=== PATIENT | female | born 1975 | race American Indian/Alaskan Native ===

== ENCOUNTER 2018-01-21 04:16 | Emergency (ER) | payer SELFPAY ==
[2018-01-21] MEDS ORDERED: ATIVAN IV PRN (04:40)
[2018-01-21] MEDS ORDERED: NACL 0.9% 1000 ML 1,000 ML IV ONE (04:40)
--- NOTE | 2018-01-21 04:47 | Emergency Department Report ---
ED Seizure HPI - General Chief Complaint: Seizure Stated Complaint: SEIZURE Time Seen by Provider: 01/21/18 04:40 Source: EMS Mode of arrival: Stretcher Limitations: Altered Mental Status - History of Present Illness Initial Comments: 42-year-old woman, brought in by EMS with report of having been found having active seizure by daughter. Patient was apparently from out of town, was in a hotel, and daughter found patient with seizure-like activity. Report was that patient had been having similar minor episodes the previous day, and daughter had recommended evaluation, the patient had refused. There is no prior history of seizure disorder, and there is no report of any prior trauma, illness, or other unusual activity. EMS did not provide any treatments for patient, brought her here for further evaluation. Patient was found in an unusual position on stretcher, with all extremities extended, although she was not exhibiting any clonic tonic activity, eyes were held close, there was no stiffness, no difficulty with breathing, and patient extremities were easy to move, with minimal resistance initially, followed by easy flexibility, and no clonic or tonic involuntary activity. Patient was not incontinent. Pupillary reflexes were intact, corneal reflexes were intact, and patient exhibited involuntary leg contraction with stimulation of eyelashes. Patient was breathing normally, and vital signs were stable. Onset/Timin -: Sudden, hour(s) Description of Episode: loss of consciousness Witnessed:: Yes Trauma: No Seizure History: none Place: home Possible Precipitating Event: none Associated Symptoms: denies other symptoms Treatments Prior to Arrival: none - Related Data Previous Rx's Medication Instructions Recorded Last Taken Type metroNIDAZOLE [Metrogel 1%] 1 applicatio TP QDAY #60 gel..gram. 10/09/15 Unknown Rx levETIRAcetam [Keppra] 500 mg PO BID #60 tablet 01/21/18 Unknown Rx Allergies Allergy/AdvReac Type Severity Reaction Status Date / Time shellfish derived Allergy Hives Verified 10/09/15 07:47 ED Review of Systems ROS: Stated complaint: SEIZURE Other details as noted in HPI Comment: All other systems reviewed and negative Constitutional: no symptoms reported ENT: denies: throat pain Respiratory: denies: see HPI, cough, shortness of breath Cardiovascular: denies: chest pain Endocrine: no symptoms reported Gastrointestinal: denies: abdominal pain, nausea, diarrhea Genitourinary: denies: urgency, dysuria, discharge Musculoskeletal: denies: back pain, joint swelling, arthralgia Skin: denies: rash, lesions Neurological: denies: headache, weakness, paresthesias Psychiatric: denies: anxiety, depression Hematological/Lymphatic: denies: easy bleeding, easy bruising ED Past Medical Hx - Past Medical History Previous Medical History?: No Hx Seizures: No Additional medical history: Vaginitis - Surgical History Past Surgical History?: Yes Additional Surgical History: tubal ligation 1998 - Social History Smoking Status: Unknown if ever smoked - Medications Home Medications: Home Medications Medication Instructions Recorded Confirmed Last Taken Type metroNIDAZOLE [Metrogel 1%] 1 applicatio TP QDAY #60 gel..gram. 10/09/15 Unknown Rx levETIRAcetam [Keppra] 500 mg PO BID #60 tablet 01/21/18 Unknown Rx ED Physical Exam - General Limitations: Altered Mental Status (patient is a straight on stretcher, arms extended, but no active seizure, minimally responsive, does not make eye contact ) General appearance: in no apparent distress, other (unusual behavior, does not make direct eye contact, no active seizures observed) - Head Head exam: Present: atraumatic, normocephalic - Eye Eye exam: Present: PERRL - ENT ENT exam: Present: normal exam, mucous membranes moist - Neck Neck exam: Present: normal inspection, full ROM. Absent: tenderness - Respiratory Respiratory exam: Present: normal lung sounds bilaterally. Absent: respiratory distress, wheezes, rales, rhonchi - Cardiovascular Cardiovascular Exam: Present: regular rate, normal rhythm, normal heart sounds - GI/Abdominal GI/Abdominal exam: Present: soft, normal bowel sounds. Absent: tenderness, guarding, rebound - Rectal Rectal exam: Present: deferred - Extremities Exam Extremities exam: Present: normal inspection, full ROM. Absent: tenderness, pedal edema - Back Exam Back exam: Present: normal inspection - Neurological Exam Neurological exam: Present: altered (makes minimal contact, speaks in a soft voice, clearly aware, makes incomplete efforts to cooperate with exam), oriented X3 (able name date, place, time, reports no recall of immediate situation surrounding seizure). Absent: motor sensory deficit - Psychiatric Psychiatric exam: Present: other (makes poor eye contact, keeps eyes closed, somewhat withdrawn, speaks in soft tone of voice) - Skin Skin exam: Present: warm, dry ED Course Vital Signs 01/21/18 01/21/18 01/21/18 04:42 04:45 05:00 Temperature Pulse Rate 103 H 101 H 90 Respiratory 20 19 18 Rate Blood Pressure 133/82 129/83 O2 Sat by Pulse Oximetry 01/21/18 05:38 Temperature 37.2 C Pulse Rate Respiratory Rate Blood Pressure O2 Sat by Pulse 100 Oximetry - Reevaluation(s) Reevaluation #1: 01/21/18 07:14 Patient remained stable in the emergency department, with no active clonic tonic seizure activity, is awake, but avoids contact, appears somewhat withdrawn , but in no acute distress. Vital signs are stable, lab results discussed, lack of prior neurologic evaluation confirmed, or current primary care doctor, with need for further follow-up. ED Medical Decision Making - Lab Data Result diagrams: 01/21/18 04:51 01/21/18 04:51 - Radiology Data Radiology results: report reviewed (normal CT scan of brain with no acute intracranial pathology, no evidence of head trauma) - Medical Decision Making This middle-aged woman as essentially normal physical examination, with questionable history of seizure, which appears to be some form of acting out or stress related anxiety reaction, but I doubt if patient is having grand mal seizure activity, or even atypical seizure activity. Nonetheless, given her lack of prior history, I believe it prudent to start her on antiepileptic medication, she was given an initial dose of Keppra, and we'll discharge her on Keppra, with referral to a neurologist, for arrangements for outpatient evaluation to include EEG. - Differential Diagnosis seizure, atypical seizure, pseudoseizure, anxiety reaction Critical Care Time: No Critical care attestation.: If time is entered above; I have spent that time in minutes in the direct care of this critically ill patient, excluding procedure time. ED Disposition Clinical Impression: Witnessed seizure-like activity Disposition: -01 TO HOME OR SELFCARE Is pt being admited?: No Does the pt Need Aspirin: No Condition: Stable Additional Instructions: We have evaluated here today for seizure-like activity, but could not find definite evidence of an acute grand mal seizure. Laboratory evaluation is stable, as is CT scan. You will need further evaluation by a neurologist to determine if you've had true seizure activity, but this can be safely performed on an outpatient basis. We do not have neurologic services available at this hospital, and you will need to obtain your own neurologic specialist follow-up. He may wish to contact a local neurologist, in the area, research on the Internet or Yellow Pages. He may also wish to follow with neurology services at [facility], and he may contact them for a referral appointment. You are stable for discharge home, but we are starting you on Keppra, to take twice daily while awaiting neurologic follow-up. We recommend that she not drive vehicles while you are being evaluated, presented to you have been cleared by neurologist. You may be up and around, but avoid pools of water, do not bathe, but instead you should shower. Have repeat emergency department evaluation if he have any persistent or recurrent worsening symptoms. Prescriptions: levETIRAcetam [Keppra] 500 mg PO BID #60 tablet Referrals: PRIMARY CARE, [Primary Care Provider] - 3-5 Days Time of Disposition: 07:19
[2018-01-21 05:07] LABS: Basophils % (Auto) 0.5 % (0.0-1.8); Eosinophils % (Auto) 0.2 % (0.0-4.3); Hematocrit 36.3 % (30.3-42.9); Hemoglobin 11.7 gm/dl (10.1-14.3); Lymphocytes # (Auto) 2.6 K/mm3 (1.2-5.4); Lymphocytes % (Auto) 27.7 % (13.4-35.0); Mean Corpuscular HGB Conc 32 % (30-34); Mean Corpuscular Hemoglobin 27 pg (28-32); Mean Corpuscular Volume 82 fl (79-97); Monocytes # (Auto) 1.2 K/mm3 (0.0-0.8); Monocytes % (Auto) 13.5 % (0.0-7.3); Platelet Count 338 K/mm3 (140-440); Red Blood Count 4.43 M/mm3 (3.65-5.03); Red Cell Distribution Width 13.9 % (13.2-15.2)
[2018-01-21 05:35] LABS: Alanine Aminotransferase 7 units/L (7-56); Albumin 4.1 g/dL (3.9-5); BUN/Creatinine Ratio 10; Blood Urea Nitrogen 8 mg/dL (7-17); Calcium 9.4 mg/dL (8.4-10.2); Hemolysis Index 9
[2018-01-21 05:38] VITALS: BP 129/83
[2018-01-21 06:26] LABS: Bilirubin,Urine SM (Negative); Blood,Urine NEG (Negative); Color,Urine Yellow (Yellow); Mucus,Urine 3+ /HPF
[2018-01-21 06:28] LABS: Amphetamine Screen,Urine PRESUMPTIVE NEGATIVE; Benzodiazepines Screen,Urine PRESUMPTIVE NEGATIVE; Cannabinoid Screen,Urine PRESUMPTIVE NEGATIVE; Cocaine Screen,Urine PRESUMPTIVE NEGATIVE; Methadone Screen,Urine PRESUMPTIVE NEGATIVE; Opiate Screen,Urine PRESUMPTIVE NEGATIVE
[2018-01-21 06:31] LABS: Ictotest,Urine Negative (Negative)
--- NOTE | 2018-01-21 06:38 | Cat Scan Report ---
FINAL REPORT PROCEDURE: CT HEAD/BRAIN WO CON TECHNIQUE: Computerized tomography of the head was performed without contrast material. HISTORY: Seizure COMPARISON: No prior studies are available for comparison. FINDINGS: Skull and scalp: Normal. Paranasal sinuses: Normal. Ventricles and subarachnoid spaces: Normal. Cerebrum: No evidence of hemorrhage, acute infarction or mass . Cerebellum and brainstem: No evidence of hemorrhage, acute infarction or mass. Vasculature: Normal. Comments: None. IMPRESSION: There is no evidence of an acute intracranial process
== END 2018-01-21 07:40 | disposition home or self-care (01) ==
LOC: ED 04:16
DX: R56.9 Unspecified convulsions (principal); Z98.51 Tubal ligation status; Z91.013 Allergy to seafood
CPT/HCPCS: 36415; 70450; 80053; 80156; 80164; 80185; 80307; 81001; 85025; 96360; 99285; G0480; J7030; 80320

== ENCOUNTER 2018-02-28 13:22 | Emergency (ER) | payer SELFPAY ==
--- NOTE | 2018-02-28 14:26 | Emergency Department Report ---
ED General Adult HPI - General Chief complaint: Altered Mental Status Stated complaint: MH Time Seen by Provider: 02/28/18 14:09 Source: EMS Mode of arrival: Stretcher Limitations: Altered Mental Status - History of Present Illness Initial comments: Patient is 43 years old female with no significant past medical history. Patient brought to the ER by EMS after daughter called and stated that her mother is sitting in a bizarre position. Patient is unable to give any history and she is not making any eye contact. Patient was seen here a few weeks back and diagnosis possible seizure. Patient was put on Keppra. I went back into the patient's medical history she was seen here a few times so therefore vaginal discharge and last time she was seen for possible seizure and she was discharged. Unable to obtain more history from this patient at this moment. - Related Data Previous Rx's Medication Instructions Recorded Last Taken Type metroNIDAZOLE [Metrogel 1%] 1 applicatio TP QDAY #60 gel..gram. 10/09/15 Unknown Rx levETIRAcetam [Keppra] 500 mg PO BID #60 tablet 01/21/18 Unknown Rx Allergies Allergy/AdvReac Type Severity Reaction Status Date / Time shellfish derived Allergy Hives Verified 02/28/18 13:48 ED Review of Systems ROS: Stated complaint: MH Other details as noted in HPI Comment: Unobtainable due to pts medical conditions Constitutional: denies: chills, fever ED Past Medical Hx - Past Medical History Hx Seizures: No Additional medical history: Vaginitis - Surgical History Additional Surgical History: tubal ligation 1998 - Social History Smoking Status: Never Smoker Substance Use Type: None - Medications Home Medications: Home Medications Medication Instructions Recorded Confirmed Last Taken Type metroNIDAZOLE [Metrogel 1%] 1 applicatio TP QDAY #60 gel..gram. 10/09/15 Unknown Rx levETIRAcetam [Keppra] 500 mg PO BID #60 tablet 01/21/18 Unknown Rx ED Physical Exam - General Limitations: Altered Mental Status General appearance: alert, other (Catatonic state) - Head Head exam: Present: atraumatic, normocephalic - Eye Eye exam: Present: normal appearance, PERRL - ENT ENT exam: Present: normal exam, normal orophraynx, mucous membranes moist - Neck Neck exam: Present: normal inspection, full ROM. Absent: tenderness, meningismus, lymphadenopathy, thyromegaly - Respiratory Respiratory exam: Present: normal lung sounds bilaterally. Absent: respiratory distress, wheezes, rales, rhonchi, stridor, chest wall tenderness, accessory muscle use, decreased breath sounds, prolonged expiratory - Cardiovascular Cardiovascular Exam: Present: regular rate, normal rhythm, normal heart sounds - GI/Abdominal GI/Abdominal exam: Present: soft, normal bowel sounds. Absent: distended, tenderness, guarding, rebound, rigid, organomegaly, mass, bruit, pulsatile mass , hernia - Extremities Exam Extremities exam: Present: normal inspection, full ROM, normal capillary refill. Absent: tenderness, pedal edema, joint swelling, calf tenderness - Back Exam Back exam: Present: normal inspection, full ROM - Neurological Exam Neurological exam: Present: alert - Skin Skin exam: Present: warm, intact, normal color ED Course Vital Signs 02/28/18 02/28/18 02/28/18 13:49 14:13 18:54 Temperature 98.4 F Pulse Rate 90 84 Respiratory 18 16 18 Rate Blood Pressure 132/84 Blood Pressure 126/74 [Left] O2 Sat by Pulse 100 98 Oximetry - Reevaluation(s) Reevaluation #1: 02/28/18 15:19 Patient daughters came to the ER. Therefore I will to give me more history. They stated that the mother was fine until like one month ago when there was still a financial problem and all the family living in a motel now. They believe that she is going slowlydown. Patient stated that the last weeks she started talking about herself in a one time they saw taking it and that Tylenol overdose and one time also she stated that she going to drink bleach. They also stated that she was admitted to [facility] for 3 days and then she followed as an outpatient. They said she did very well after that but her symptoms relapsed again. ED Medical Decision Making - Lab Data Result diagrams: 02/28/18 14:20 02/28/18 14:20 Critical care attestation.: If time is entered above; I have spent that time in minutes in the direct care of this critically ill patient, excluding procedure time. ED Disposition Clinical Impression: Acute psychosis, Suicidal ideation Disposition: [id number]/TX-65 PSY HOSP/PSY UNIT Is pt being admited?: No Condition: Stable Referrals: PRIMARY CARE, [Primary Care Provider] - 3-5 Days
[2018-02-28 14:50] LABS: Basophils % (Auto) 0.4 % (0.0-1.8); Eosinophils % (Auto) 0.3 % (0.0-4.3); Hematocrit 36.2 % (30.3-42.9); Hemoglobin 11.6 gm/dl (10.1-14.3); Lymphocytes # (Auto) 2.9 K/mm3 (1.2-5.4); Mean Corpuscular HGB Conc 32 % (30-34); Mean Corpuscular Hemoglobin 26 pg (28-32); Mean Corpuscular Volume 82 fl (79-97); Monocytes # (Auto) 1.2 K/mm3 (0.0-0.8); Monocytes % (Auto) 13.9 % (0.0-7.3); Platelet Count 312 K/mm3 (140-440); Red Blood Count 4.39 M/mm3 (3.65-5.03); Red Cell Distribution Width 14.5 % (13.2-15.2)
[2018-02-28 14:51] LABS: Bilirubin,Urine NEG (Negative); Blood,Urine NEG (Negative); Color,Urine Yellow (Yellow); Mucus,Urine FEW /HPF; RBC,Urine < 1.0 /HPF (0.0-6.0); WBC,Urine < 1.0 /HPF (0.0-6.0)
[2018-02-28 14:59] LABS: BUN/Creatinine Ratio 14; Blood Urea Nitrogen 10 mg/dL (7-17); Calcium 9.1 mg/dL (8.4-10.2); Hemolysis Index 2
[2018-02-28 15:00] LABS: Amphetamine Screen,Urine PRESUMPTIVE NEGATIVE; Benzodiazepines Screen,Urine PRESUMPTIVE NEGATIVE; Cannabinoid Screen,Urine PRESUMPTIVE NEGATIVE; Cocaine Screen,Urine PRESUMPTIVE NEGATIVE; Methadone Screen,Urine PRESUMPTIVE NEGATIVE; Opiate Screen,Urine PRESUMPTIVE NEGATIVE
[2018-03-01] MEDS ORDERED: KEPPRA PO ONE (02:14)
[2018-03-01] MEDS: KEPPRA PO SCH ×3 (02:22→22:16)
[2018-03-01] MEDS ORDERED: KEPPRA PO SCH (03:00)
--- NOTE | 2018-03-01 11:46 | Consultation ---
History of Present Illness - Reason for Consult Consult date: 03/01/18 Reason for consult: Mental Health Evaluation Requesting physician: MYLENE OVALLE - Chief Complaint Chief complaint: "The patient mumbles I'm scared" - History of Present Psychiatric Illness 43 years old female with no significant past medical history. The patient is brought to the ER by EMS for bizarre behavior per the record. Today the patient mumbles during the assessment. She did state being "scared" and started crying. She would not answer any questions when asked. Per the record, she was inpatient at [facility] in the past. This patient is not a good historian at this time. Medications and Allergies Allergies Allergy/AdvReac Type Severity Reaction Status Date / Time shellfish derived Allergy Hives Verified 02/28/18 13:48 Home Medications Medication Instructions Recorded Confirmed Last Taken Type metroNIDAZOLE [Metrogel 1%] 1 applicatio TP QDAY #60 gel..gram. 10/09/15 Unknown Rx levETIRAcetam [Keppra] 500 mg PO BID #60 tablet 01/21/18 02/28/18 Unknown Rx Active Meds: Active Medications Levetiracetam (Keppra) 500 mg PO BID CHUCK Stop: 03/06/18 02:21 Last Admin: 03/01/18 11:03 Dose: 500 mg Past psychiatric history - Past Medical History Past Medical History: other (seizures per the record) Past Surgical History: Other (Unable to obtain) - past Psychiatric treatment and history psychiatric treatment history: Unable to obtain a psy hx and afam psy hx. - Social History Social history: other (Reside with family per the record) Mental Status Exam - Vital signs Last Vital Signs Temp 98.4 F 02/28/18 13:49 Pulse 84 02/28/18 18:54 Resp 18 02/28/18 18:54 BP 126/74 02/28/18 18:54 Pulse Ox 98 02/28/18 18:54 - Exam Narrative exam: Unable to complete the MSE because of the patient's condition. Results Result Diagrams: 02/28/18 14:20 02/28/18 14:20 Abnormal lab results 02/28/18 02/28/18 02/28/18 Range/Units 14:12 14:20 14:20 MCH (28-32) pg [place] % (Auto) (0.0-7.3) % [place] # (0.0-0.8) K/mm3 Glucose 102 H (65-100) mg/dL Ur Specific [place] 1.034 H (1.003-1.030) Salicylates < 0.3 L (2.8-20.0) mg/dL 02/28/ Range/Units 14:20 MCH 26 L (28-32) pg [place] % (Auto) 13.9 H (0.0-7.3) % [place] # 1.2 H (0.0-0.8) K/mm3 Glucose (65-100) mg/dL Ur Specific [place] (1.003-1.030) Salicylates (2.8-20.0) mg/dL All other labs normal. Assessment and Plan Assessment and plan: Impression: Today the patient mumbles during the assessment. UDS is negative. Recommendation/Plan: Continue 1013, reassess patient in 24 hours, and gather collateral information to help determine proper dispo and treatment.
[2018-03-02] MEDS: KEPPRA PO SCH ×2 (11:08→21:54)
--- NOTE | 2018-03-02 11:12 | Progress Note ---
Subjective - Reason for Consult Consult date: 03/02/18 Reason for consult: Psychiatry Follow-up - Chief Complaint Chief complaint: "The patient mumbles" 43 years old female with no significant past medical history. The patient is brought to the ER by EMS for bizarre behavior per the record. Today the patient continues to mumble during the assessment. She presents with psychomotor retardation. The patient will not open her eyes when asked. Per the record, she ate 50% of dinner yesterday, but this morning she would not eat. The patient is a poor historian at this time. No gestures of SI/HI's. Mental Status Exam - Vital signs Last Vital Signs Temp 97.9 F 03/01/18 20:27 Pulse 116 H 03/01/18 20:27 Resp 16 03/01/18 20:27 BP 127/93 03/01/18 20:27 Pulse Ox 98 03/01/18 20:27 - Exam Narrative exam: Unable to complete the MSE because of the patient's condition. Assessment and Plan Impression: Catatonia. Today the patient continues to mumbles during the assessment. UDS is negative. DDx: Psychotic/Mood DO Recommendation/Plan: Continue 1013 with placement to inpatient psy services. Gather collateral information to help with current treatment. Start Ativan 1 mg IM TID for catatonia. Monitor patient's oral intake.
[2018-03-02] MEDS: ATIVAN IM SCH ×2 (14:05→21:53)
[2018-03-03] MEDS: KEPPRA PO SCH ×2 (10:52→21:41)
[2018-03-03] MEDS: ATIVAN IM SCH ×3 (10:52→21:40)
--- NOTE | 2018-03-03 17:09 | Progress Note ---
Subjective - Reason for Consult Consult date: 03/03/18 Reason for consult: Pscyhiatric Follow-up Evaluation - Chief Complaint Chief complaint: "Tired" Patient is a 43 years old female with no significant past medical history. The patient is brought to the ER by EMS for bizarre behavior per the record. Today the patient continues to mumble during the assessment. She presents with psychomotor retardation. The patient is seen eating lunch. She states " I'm here for my mental state. I don't know what to do. I'm crazy." During the assessment patient is tearful. She verbalizes " I want my daughter. I don't know where my kids are." She endorses SI's without a plan. She states " I want to ." She denies psychosis and HI's. The patient is a poor historian at this time. Mental Status Exam - Vital signs Last Vital Signs Temp 98.6 F 03/02/18 21:10 Pulse 113 H 03/02/18 21:10 Resp 18 03/03/18 12:01 BP 130/88 03/02/18 21:10 Pulse Ox 98 03/03/18 12:01 - Exam Narrative exam: Mental Status Exam General Appearance: Causally Dressed-hospital gown Eye Contact: Intermittent Orientation: Alert and oriented x 2 ( person and place) Attitude/Behavior: Cooperative Sensorium: Distracted Psychomotor & Musculoskeletal Activity: Laying in bed Mood: "Disturbed." Depressed and anxious. Tearful. Affect: Constricted Speech/Language: Slow rate and soft tone. Mumbles at time. Thought Processes: Tangential, circumstantial Thought Content: Impoverished. Patient denies Perception: + Auditory hallucinations- " I'm hearing voices telling me to kill myself. " + Visual hallucinations "ghosts." Concentration/Attention: Impaired Suicidal Ideations/Plan: + SI's without a plan. She verbalizes " I want to . " Homicidal Ideations/Plan: Patient denies. Insight: Variable Judgment: Variable Assessment and Plan Impression: Catatonia. Today the patient is cooperative but tearful during the assessment. She continues to mumbles, which makes it difficult to understand patient's speech. She endorses depressed mood and SI's without a plan. Although thought content is impoverished, she denies psychosis. UDS is negative. DDx: Psychotic/Mood DO Recommendation/Plan: 1. Continue 1013 with placement to inpatient psychiatric services. Gather collateral information to help with current treatment. 2. Continue Ativan 1 mg IM TID for catatonia. Will monitor patient's oral intake. 3. Will consider starting an antidepressant/mood stabilizer once catatonia has improved. 4. Will continue to monitor mood, psychosis, catatonia, sleep, appetite, compliance, and side effects.
[2018-03-04] MEDS: ATIVAN IM SCH ×3 (08:58→21:58)
[2018-03-04] MEDS: KEPPRA PO SCH ×2 (11:00→22:20)
[2018-03-05] MEDS: ATIVAN IM SCH (09:10)
[2018-03-05] MEDS: KEPPRA PO SCH ×2 (10:34→22:00)
--- NOTE | 2018-03-05 10:37 | Progress Note ---
Subjective - Reason for Consult Consult date: 03/05/18 Reason for consult: Psychiatry Follow-up - Chief Complaint Chief complaint: "I am scared" Patient is a 43 years old female with no significant past medical history. The patient is brought to the ER by EMS for bizarre behavior per the record. Today the patient is cooperative, but tearful during the assessment. She stated that she feel fearful of something, but cannot explain what it is. She stated being a patient at a mental health facility recently, but didn't fill her prescription when discharged. The patient would pause several time during the interview to answer questions, possibly responding to some type of stimuli. She would not confirm or deny SI's. 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 Today the patient is cooperative, but tearful during the assessment. UDS is negative. DDx: Psychotic/Mood DO Recommendation/Plan: The patient's 1013 expires in 24 hours. The patient will be reassess tomorrow to determine of the 1013 will be extended. The patient is still pending inpatient psy services placement. Modify Ativan 1 mg to PO BID for catatonia and start Abilify 5 mg PO daily for mood/psyhosis. Discussed possible metabolic side effects of Abilify with patient reference Abilify. Monitor patient's oral intake.
[2018-03-05] MEDS ORDERED: GEODON IM ONE ×2 (12:08)
[2018-03-05] MEDS ORDERED: GEODON IM PRN (12:08)
[2018-03-05] MEDS ORDERED: WATER FOR INJ (PF) ONE (12:09)
[2018-03-05] MEDS: ABILIFY PO SCH (13:07)
[2018-03-05] MEDS: ATIVAN PO SCH ×2 (13:07→22:00)
[2018-03-06] MEDS: ATIVAN PO SCH ×2 (09:07→23:57)
[2018-03-06] MEDS: ABILIFY PO SCH (09:07)
--- NOTE | 2018-03-06 12:23 | Progress Note ---
Subjective - Reason for Consult Consult date: 03/06/18 Reason for consult: Psychiatry Follow-up - Chief Complaint Chief complaint: "I am scared" Patient is a 43 years old female with no significant past medical history. The patient is brought to the ER by EMS for bizarre behavior per the record. Today the patient is cooperative, but still tearful during the assessment. She is asked for her daughter throughout the interview. She stated that she reside in a hotel room 271. She would not confirm or deny SI's and AH' s when asked. No indications of side effects of her medications. Mental Status Exam - Vital signs Last Vital Signs Temp 97.9 F 03/06/18 09:52 Pulse 60 03/06/18 09:52 Resp 20 03/06/18 09:52 BP 115/66 03/06/18 09:52 Pulse Ox 99 03/06/18 09:52 - Exam Narrative exam: MSE: Appearance: calm Behavior: regular eye contact Speech: regular rate, low tone Mood: "I don't know" tearful Affect: congruent to mood Thought Process: disorganized Thought Content: denies HI's and VH's, paranoia, she will not confirm or deny SI's and AH's Motor Activity: lying down, psychomotor retardation Cognition: A/O x 3 Insight: variable Judgment: variable Assessment and Plan Impression: Unspecified Mood DO with psy features. Catatonia. Today the patient is cooperative, but tearful during the assessment. UDS is negative. The patient;s catatonia is resolving. DDx: Psychotic/Mood DO Recommendation/Plan: The patient's 1013 expires in 24 hours. The patient will be reassess tomorrow to determine if the 1013 will be extended. The patient is still pending inpatient psy services placement. Continue Ativan 1 mg PO BID for catatonia and Abilify 5 mg PO daily for mood/psyhosis. Discussed possible metabolic side effects of Abilify with patient reference Abilify. Monitor patient's oral intake. A call was placed to a hotel at [phone] room [id number], no answer. Will follow up in 24 hours.
[2018-03-07] MEDS: ATIVAN PO SCH (10:31)
[2018-03-07] MEDS: ABILIFY PO SCH (10:31)
--- NOTE | 2018-03-07 19:15 | Progress Note ---
Subjective - Reason for Consult Consult date: 03/07/18 Reason for consult: Psychiatric Follow-up Evaluation - Chief Complaint Chief complaint: "I'm frustrated." Patient is a 43 years old female with no significant past medical history. The patient is brought to the emergency room by EMS for bizarre behavior per the record. Today the patient is cooperative but guarded/ evasive. She endorses depressed mood, anxiety, and paranoid thoughts. She states " I feel alone. I can't talk to my daughter. I miss them." She endorses suicidal ideations without a plan. She states " I think about it but I don't want to do it." She denies A/VH. She reports medication compliance. No indications of side effects. Mental Status Exam - Vital signs Last Vital Signs Temp 99 F 03/07/18 09:00 Pulse 99 H 03/07/18 09:00 Resp 18 03/07/18 09:00 BP 126/87 03/07/18 09:00 Pulse Ox 99 03/07/18 09:00 - Exam Narrative exam: Mental Status Exam General Appearance: Causally Dressed-hospital gown Eye Contact: Intermittent Orientation: Alert and oriented x 2 ( person and place) Attitude/Behavior: Cooperative Sensorium: Distracted Psychomotor & Musculoskeletal Activity: Laying in bed Mood: "Frustrated." Depressed and anxious. Affect: Constricted Speech/Language: Slow. Soft. Mumbles at time. Thought Processes: Tangential, circumstantial Thought Content: Impoverished. Endorses paranoid thoughts. Perception: Patient denies. Concentration/Attention: Impaired Suicidal Ideations/Plan: + SI's without a plan. She verbalizes " I think about it but I don't want to do it." Homicidal Ideations/Plan: Patient denies. 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 Today the patient is cooperative and compliant. She presents depressed, anxious, and paranoid. She denies A/VH. UDS is negative. The patient catatonia is resolving. DDx: Psychotic/Mood DO Recommendation/Plan: 1. 1013 will be extended. The patient is still pending inpatient psychiatric services placement. 2. Continue Ativan 1 mg PO BID for catatonia. 3. Increase Abilify 10 mg PO daily for mood/psyhosis. Discussed possible metabolic side effects of Abilify with patient reference Abilify. Monitor patient's oral intake. 4. Will monitor mood, psychosis, catatonia, sleep, appetite, compliance, and side effects.
[2018-03-08] MEDS: ATIVAN PO SCH ×3 (00:34→23:57)
--- NOTE | 2018-03-08 16:43 | Progress Note ---
Subjective - Reason for Consult Consult date: 03/08/18 Reason for consult: Psychiatry Follow-up - Chief Complaint Chief complaint: "I'm don't know what is wrong with me" Patient is a 43 years old female with no significant past medical history. The patient is brought to the emergency room by EMS for bizarre behavior per the record. Today the patient is tearful during the assessment. She will not confirm or deny SI's and AH's when asked. Per the staff , the patient walked to the restroom prior to my arrival. She denies HI's and VH 's. No indications of side effects of her medication. Mental Status Exam - Vital signs Last Vital Signs Temp 98.1 F 03/08/18 10:00 Pulse 101 H 03/08/18 10:00 Resp 20 03/08/18 12:38 BP 127/67 03/08/18 10:00 Pulse Ox 99 03/08/18 12:38 - Exam Narrative exam: MSE: Appearance: cooperative Behavior: eyes closed Speech: regular rate, low tone Mood: tearful Affect: congruent to mood Thought Process: circumstantial Thought Content: denies HI's and VH's, paranoia, she will not confirm or deny SI's and AH's Motor Activity: lying down, psychomotor retardation Cognition: A/O x 3 Insight: variable Judgment: variable Assessment and Plan Impression: Unspecified Mood DO with psy features. Catatonia. Today the patient is tearful during the assessment. UDS is negative. The patient's catatonia is resolving. DDx: Psychotic/Mood DO Recommendation/Plan: Continue 1013 with pending placement to [facility]. Continue Ativan 1 mg PO BID for catatonia and increase Abilify to 10 mg PO daily for mood/psyhosis. Discussed possible metabolic side effects of Abilify with patient. Monitor patient's oral intake.
[2018-03-08] MEDS: ABILIFY PO SCH (17:08)
[2018-03-09] MEDS: ABILIFY PO SCH (10:45)
[2018-03-09] MEDS: ATIVAN PO SCH (10:45)
--- NOTE | 2018-03-09 11:53 | Cat Scan Report ---
CT HEAD WITHOUT CONTRAST: HISTORY: Seizure. TECHNIQUE: Sequential 2.5mm CT images. COMPARISON: 01/21/18. FINDINGS: Cerebral Parenchyma: Within normal limits. Cerebellum: Within normal limits. Brainstem: Within normal limits. Ventricles: Normal. Sella: Normal. Extra-axial spaces: Normal. Basal Cisterns: Normal. Intracranial Hemorrhage: None. Midline Shift: None. Calvarium: Normal. Sinuses: Normal. Mastoid Air Cells: Normal. Visualized Orbits: Normal. IMPRESSION: Cranial CT scan within normal limits.
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
[2018-03-10] MEDS: ABILIFY PO SCH (10:15)
[2018-03-10] MEDS: ATIVAN PO SCH (10:15)
--- NOTE | 2018-03-10 19:14 | Progress Note ---
Subjective - Reason for Consult Consult date: 03/10/18 Reason for consult: Psychiatric Follow-up Evaluation - Chief Complaint Chief complaint: "So so" Patient is a 43 years old female with no significant past medical history. The patient is brought to the emergency room by EMS for bizarre behavior per the record. Today the patient is calm and cooperative during the assessment. She continues to endorse depressed mood. She states, " my mood is in between." She reports medication compliance. She verbalizes that her medication is partially effective. She denies any side effects of medications. She denies SI/HI, A/VH, and delusions. Patient's daughter is Vanessa Donald at [phone] RM 271. Mental Status Exam - Vital signs Last Vital Signs Temp 99 F 03/10/18 10:00 Pulse 99 H 03/10/18 10:00 Resp 16 03/10/18 10:00 BP 106/58 03/10/18 10:00 Pulse Ox 100 03/10/18 10:00 - Exam Narrative exam: Mental Status Exam General Appearance: Causally Dressed-hospital gown Eye Contact: Intermittent Orientation: Alert and oriented x 4 ( person, place, time, and situation) Attitude/Behavior: Cooperative Sensorium: Distracted-less, clear-more Psychomotor & Musculoskeletal Activity: Laying in bed Mood: "So so ." Depressed and anxious- less Affect: Constricted Speech/Language: Slow. Soft. Mumbles at time. Thought Processes: Circumstantial Thought Content: Patient denies delusions. Perception: Patient denies A/V/T hallucinations. Concentration/Attention: Impaired Suicidal Ideations/Plan: Patient denies. Homicidal Ideations/Plan: Patient denies. 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 R/O PTSD. Today the patient is calm and cooperative during the assessment. UDS is negative. The patient's catatonia is resolving. She denies SI/HI, A/VH, and delusions. DDx: Psychotic/Mood DO Recommendation/Plan: 1. Continue 1013 with pending placement to [facility]. 2. Start Ativan taper and modify Ativan 1 mg PO daily. Continue Abilify 10 mg PO daily for mood/psyhosis. Discussed possible metabolic side effects of Abilify with patient. Monitor patient's oral intake. 3. Will monitor mood, psychosis, catatonia, sleep, appetite, compliance, and side effects.
[2018-03-11] MEDS: ATIVAN PO SCH (11:49)
[2018-03-11] MEDS: ABILIFY PO SCH (11:49)
--- NOTE | 2018-03-11 17:50 | Progress Note ---
Subjective - Reason for Consult Consult date: 03/11/18 Reason for consult: Psychiatric Follow-up Evaluation - Chief Complaint Chief complaint: "Tired" Patient is a 43 years old female with no significant past medical history. The patient is brought to the emergency room by EMS for bizarre behavior per the record. Today the patient is calm and cooperative during the assessment. Although patient continues to have depressed mood, she denies suicidal ideation. She states, " I'm trying to pull myself out of it." She endorses good sleep and appetite. Patient is medication compliant. She denies any side effects of medications. She denies SI/HI, A/VH, and delusions. Patient's daughter is Vanessa Donald at [phone] RM 271. Mental Status Exam - Vital signs Last Vital Signs Temp 98.6 F 03/11/18 08:26 Pulse 80 03/11/18 08:26 Resp 20 03/11/18 08:26 BP 100/54 03/11/18 08:26 Pulse Ox 100 03/11/18 08:26 - Exam Narrative exam: Mental Status Exam General Appearance: Causally Dressed-hospital gown Eye Contact: Intermittent Orientation: Alert and oriented x 4 ( person, place, time, and situation) Attitude/Behavior: Cooperative Sensorium: Distracted-less, clear-more Psychomotor & Musculoskeletal Activity: Ambulatory Mood: "Tired ." Depressed and anxious- less Affect: Constricted Speech/Language: Slow. Soft. Thought Processes: Circumstantial Thought Content: Patient denies delusions. Perception: Patient denies A/V/T hallucinations. Concentration/Attention: Impaired Suicidal Ideations/Plan: Patient denies. Homicidal Ideations/Plan: Patient denies. 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 R/O PTSD. Today the patient is calm and cooperative during the assessment. Mood is much improved. The patient's catatonia is resolving. She denies SI/HI, A/VH, and delusions. UDS is negative. DDx: Psychotic/Mood DO Recommendation/Plan: 1. Continue 1013 with pending placement to [facility]. 2. Start Ativan taper and modify Ativan 1 mg PO daily. Continue Abilify 10 mg PO daily for mood/psyhosis. Discussed possible metabolic side effects of Abilify with patient. Monitor patient's oral intake. 3. Will monitor mood, psychosis, catatonia, sleep, appetite, compliance, and side effects.
--- NOTE | 2018-03-12 09:26 | Progress Note ---
Subjective - Reason for Consult Consult date: 03/12/18 Reason for consult: Psychiatry Follow-up - Chief Complaint Chief complaint: "I'm still tired" Patient is a 43 years old female with no significant past medical history. The patient is brought to the emergency room by EMS for bizarre behavior per the record. Today the patient is calm during the assessment. She stated that the voices has ceased, but would not confirm or deny SI's. She denies HI's and AVH's. She denies any side effects of her medications. Mental Status Exam - Vital signs Last Vital Signs Temp 99.3 F 03/11/18 22:00 Pulse 72 03/11/18 22:00 Resp 18 03/11/18 22:00 BP 115/66 03/11/18 22:00 Pulse Ox 72 L 03/11/18 22:00 - Exam Narrative exam: MSE: Appearance: cooperative Behavior: regular eye contact Speech: regular rate, low tone Mood: "okay" Affect: congruent to mood Thought Process: circumstantial Thought Content: denies HI's and AVH's, would not confirm or deny SI's Motor Activity: lying down Cognition: A/O x 3 Insight: variable Judgment: variable Assessment and Plan Impression: Unspecified Mood DO with psy features. Catatonia. R/O PTSD. Today the patient is calm during the assessment. UDS is negative. DDx: R/O MDD with psychosis, R/O Bipolar DO, Schizoaffective DO Recommendation/Plan: Continue 1013 with placement to [facility] today.
[2018-03-12] MEDS: ABILIFY PO SCH (10:50)
[2018-03-12] MEDS: ATIVAN PO SCH (10:50)
[2018-03-12 11:32] VITALS: BP 91/54
== END 2018-03-12 11:50 ==
LOC: ED 13:22 → EEVIPCON 13:22 → ED 03-12 11:50
DX: F23 Brief psychotic disorder (principal); F39 Unspecified mood [affective] disorder; Z91.013 Allergy to seafood
CPT/HCPCS: 36415; 70450; 80048; 80307; 81001; 82550; 84703; 85025; 96372; 99285; G0480; J2060; J3486; 80320